=== PATIENT | male | born 1970 | race African-American/Black ===

== ENCOUNTER 2018-04-20 02:15 | Emergency (ER) | payer OTHER ==
[~2018-04-20] VITALS: Ht 167.6 cm; Wt 63.5 kg
--- NOTE | ~2018-04-20 | EKG ---
[address] [email or web address] [address] ELECTROCARDIOGRAM REPORT Name: CARLOS A WELSH ST PEÑAARABELLA Room #: [facility]ITAL[facility] [id number] Admission: 04/20/18 Attend Phys: Discharge: 04/20/18 Date of : 74 Report #: [id number] THIS REPORT FOR: //name// [facility] ED Test Date: 2018-04-20 Test Time: 02:28:06 Pat Name: CARLOS A WELSH Department: Room: Gender: M Communications Project Manager: JOSEFINA : 1970 Requested By: Elis Bang Order Number: [id number] MD: Madan Field Measurements Intervals [place] Rate: 69 P: 47 NM: 186 QRS: -36 QRSD: 84 T: 11 QT: 354 QTc: 380 Interpretive Statements Sinus rhythm Left axis deviation ST elev, probable normal early repol pattern Compared to ECG 05/20/2015 12:09:24 No significant change was found Electronically Signed On 04-20-2018 17:12:40 CDT by Madan Field [email or web address] <ELECTRONICALLY SIGNED> By: Madan Field MD, [facility] 04/20/18 1712 7 7 Madan Field MD, [facility] /EPI
[~2018-04-20 02:15] MED LIST: NORCO 5-325 TA1 EACH PO; ONDANSETRON HCL4 M2 PO; PRILOSEC40 MG PO; PROTONIX40 M1 PO; PROTONIX40 MG PO; TRAMADOL 50 MG50 MG PO; ZANTAC 150MG T150 MG PO; ZOFRAN ODT8 MG PO
[2018-04-20] MEDS ORDERED: TRAMADOL 50 MG50 MG PO (02:38)
[2018-04-20] MEDS ORDERED: CARISOPRODOL 3350 MG PO (02:39)
[2018-04-20 03:02] LABS: ABSOLUTE NEUTROPHILS 1.1 thou/uL (1.4-8.2); BASOPHILS 1.3 % (0.0-2.0); EOSINOPHILS 4.4 % (0.0-3.0); HEMATOCRIT 45.6 % (42.0-52.0); HEMOGLOBIN 15.4 gm/dL (14.0-18.0); LYMPHOCYTES 58.6 % (24.0-44.0); MCH 29.2 pg (26.0-34.0); MCHC 33.7 g/dL (28.0-37.0); MCV 86.7 fL (80.0-100.0); MONOCYTES 8.8 % (1.0-8.0); PLATELET COUNT 175 thou/uL (150-400); POLYS 26.9 % (36.0-66.0); RBC 5.26 mil/uL (4.50-6.00); RDW 12.6 % (10.5-14.5); WBC 3.9 thou/uL (4.0-11.0)
[2018-04-20 03:12] LABS: ANION GAP 6 mmol/L (7-16); BUN 19 mg/dL (7-18); CALCIUM 9.3 mg/dL (8.5-10.1); CHLORIDE 103 mmol/L (98-107); CO2 29 mmol/L (21-32); CREATININE 1.1 mg/dL (0.7-1.3); GLUCOSE 91 mg/dL (74-106); SODIUM 138 mmol/L (136-145)
[2018-04-20 03:13] LABS: ALBUMIN 3.9 g/dL (3.4-5.0); DIRECT BILIRUBIN < 0.1 mg/dL (<0.1-0.3); LIPASE 188 U/L (73-393); SGOT 20 U/L (15-37); SGPT 32 U/L (30-65); TOTAL BILIRUBIN 0.3 mg/dL (<0.1-1.0); TOTAL PROTEIN 7.9 g/dL (6.4-8.2); TROPONIN-I <0.06 ng/mL (<0.06)
[2018-04-20 03:16] LABS: POTASSIUM 3.7 mmol/L (3.5-5.1)
[2018-04-20 04:18] VITALS: BP 114/81
== END 2018-04-20 04:18 | disposition home or self-care (01) ==
LOC: ER 02:15
PROVIDERS: Emergency Medicine
DX: R07.89 Other chest pain (principal); R10.9 Unspecified abdominal pain

== ENCOUNTER 2019-03-10 06:46 | Emergency (ER) | payer OTHER ==
[~2019-03-10] VITALS: Ht 167.6 cm; Wt 61.2 kg
[~2019-03-10 06:46] MED LIST changes: +CARISOPRODOL 3350 MG PO
[2019-03-10 07:54] LABS: HEMATOCRIT 46.5 % (42.0-52.0); HEMOGLOBIN 15.6 gm/dL (14.0-18.0); MCH 30.1 pg (26.0-34.0); MCHC 33.5 g/dL (28.0-37.0); MCV 89.9 fL (80.0-100.0); PLATELET COUNT 153 thou/uL (150-400); RBC 5.18 mil/uL (4.50-6.00); RDW 12.6 % (10.5-14.5); WBC 2.8 thou/uL (4.0-11.0)
[2019-03-10 08:05] LABS: ANION GAP 8 mmol/L (7-16); BUN 16 mg/dL (7-18); CALCIUM 9.5 mg/dL (8.5-10.1); CHLORIDE 105 mmol/L (98-107); CO2 27 mmol/L (21-32); CREATININE 1.3 mg/dL (0.7-1.3); GLUCOSE 93 mg/dL (74-106); SODIUM 140 mmol/L (136-145)
[2019-03-10 08:13] LABS: ABSOLUTE NEUTROPHILS 0.9 thou/uL (1.4-8.2); PLATELET ESTIMATE NORMAL
[2019-03-10 08:16] LABS: ALBUMIN 3.8 g/dL (3.4-5.0); DIRECT BILIRUBIN 0.1 mg/dL (<0.1-0.3); LIPASE 100 U/L (73-393); SGOT 18 U/L (15-37); SGPT 21 U/L (30-65); TOTAL BILIRUBIN 0.4 mg/dL (<0.1-1.0); TOTAL PROTEIN 7.5 g/dL (6.4-8.2); TROPONIN-I <0.06 ng/mL (<0.06)
[2019-03-10 09:06] VITALS: BP 122/64
--- NOTE | 2019-03-10 14:33 | EKG ---
[address] [place] [address] ELECTROCARDIOGRAM REPORT Name: CARLOS A WELSH Room #: [facility]P [facility] [id number] ������������������ Admission: 03/10/19 ������������������ Attend Phys: Discharge: 03/10/19 ������������������ Date of : 74 Report #: [id number] ����������������������������������������������������������������� [id number] THIS REPORT FOR: //name// [facility] [place] [place] ED Test Date: 2019-03-10 Test Time: 07:39:28 Pat Name: CARLOS A WELSH Department: Room: Gender: M Material Engineer: kf : 1970 Requested By: Elis Bang Order Number: [id number] MD: Madan Field Measurements Intervals [place] Rate: 66 P: 61 DC: 169 QRS: -38 QRSD: 81 T: 34 QT: 371 QTc: 389 Interpretive Statements Sinus rhythm Leftward axis Compared to ECG 04/20/2018 02:28:06 No significant changes Electronically Signed On 03-10-2019 14:33:16 CDT by Madan Field [email or web address] ��������������������������������������������� <ELECTRONICALLY SIGNED> ���������������������������������������� By: Madan Field MD, [facility] ��������������������������������������������� 03/10/19 1433 0739 0739 Madan Field MD, FACC /EPI
== END 2019-03-10 09:07 | disposition home or self-care (01) ==
LOC: ER 06:46
PROVIDERS: Emergency Medicine
DX: R07.89 Other chest pain (principal); R20.2 Paresthesia of skin